=== PATIENT | female | born 1970 | race Two or more races ===

== ENCOUNTER 2018-06-07 14:25 | Emergency (ER) | payer OTHER ==
[~2018-06-07] VITALS: Ht 160 cm; Wt 73.5 kg
[2018-06-07] MEDS ORDERED: MECLIZINE HCL25 MG PO (19:45)
[2018-06-07] MEDS ORDERED: METOCLOPRAMIDE10 MG PO (19:45)
== END 2018-06-07 20:03 ==
LOC: ER 14:25
DX: R42 Dizziness and giddiness (principal)

== ENCOUNTER 2024-10-09 21:24 | Emergency (ER) | payer OTHER ==
[~2024-10-09] VITALS: Ht 160 cm; Wt 73.9 kg
[~2024-10-09 21:24] MED LIST: MECLIZINE HCL25 MG PO; METOCLOPRAMIDE10 MG PO
[2024-10-09] MEDS ORDERED: METFORMIN HCL1000 MG PO (21:40)
[2024-10-09] MEDS ORDERED: CRESTOR40 MG PO (21:41)
[2024-10-09] MEDS ORDERED: NORVASC5 MG PO (21:41)
[2024-10-09] MEDS ORDERED: FAMOtidine 10 MG/ML (4ML VIAL) IV ONE (22:15)
[2024-10-09] MEDS ORDERED: ONDANSETRON HCL 2 MG/ML VIAL IV ONE (22:15)
[2024-10-09] MEDS ORDERED: ONDANSETRON HCL 2 MG/ML VIAL ONE (22:19)
[2024-10-09] MEDS ORDERED: FAMOTIDINE/PF 20 MG/2 ML VIAL ONE (22:20)
[2024-10-09] MEDS ORDERED: SODIUM CHLORIDE 0.45 % 500 ML IV ONE (22:30)
[2024-10-09 23:24] LABS: HEMATOCRIT 41.3 % (36.0-45.00); HEMOGLOBIN 14.5 g/dL (12.0-15.00); MEAN CELL VOLUME 77.5 fL (80.00-100.00); MEAN CORPUSCULAR HEMOGLOBIN 27.1 pg (27.00-32.0); PLATELET COUNT 300 K/uL (150-450); RED BLOOD COUNT 5.33 M/uL (4.00-6.00); RED CELL DISTRIBUTION WIDTH 14.8 % (11.5-14.5)
[2024-10-09 23:31] LABS: CALCIUM 9.7 mg/dL (8.5-10.1); CREATININE SERUM 0.6 mg/dL (0.55-1.02); GFR 103.79; POTASSIUM 3.85 mEq/L (3.5-5.1)
[2024-10-10 00:05] LABS: PH,URINE 7.5 (5.0-8.0); URINE APPEARANCE Clear; URINE BILIRRUBIN Negative (NEGATIVE); URINE BLOOD Negative; URINE COLOR Yellow; URINE GLUCOSE Negative (NEGATIVE); URINE KETONE Negative (NEGATIVE); URINE LEUKOCYTE Negative; URINE NITRATE Negative; URINE PROTEIN Trace (NEGATIVE)
[2024-10-10 00:09] LABS: URINE BACTERIA 576.4 uL (0.0-1933); URINE EPITHELIAL CELLS 10.9 uL (0.0-38.8); URINE RBC 9.7 uL (0.0-20.8); URINE WBC 11.3 uL (0.0-23.2)
[2024-10-10 00:21] LABS: URINE CAST 0.14 uL (0.0-1.40)
[2024-10-10] MEDS ORDERED: PEPCID AC20 MG PO (00:57)
[2024-10-10] MEDS ORDERED: ONDANSETRON ODT8 MG PO (00:57)
[2024-10-10] MEDS ORDERED: ONDANSETRON HCL 2 MG/ML VIAL IV ONE (01:00)
[2024-10-10] MEDS ORDERED: ONDANSETRON HCL 2 MG/ML VIAL ONE (01:07)
== END 2024-10-10 01:27 | disposition home or self-care (01) ==
LOC: ER 21:24
PROVIDERS: General Practice
DX: A05.9 Bacterial foodborne intoxication, unspecified (principal); R11.10 Vomiting, unspecified; K29.70 Gastritis, unspecified, without bleeding; I10 Essential (primary) hypertension; E11.9 Type 2 diabetes mellitus without complications; Z79.84 Long term (current) use of oral hypoglycemic drugs